=== PATIENT | male | born 1970 | race Caucasian/White ===

== ENCOUNTER 2021-09-03 08:01 | Inpatient (IN) | payer SELFPAY ==
[~2021-09-03] VITALS: Ht 185.4 cm; Wt 95.3 kg
[~2021-09-03 08:01] MED LIST: IBUPROFEN600 MG PO
[2021-09-03 09:02] LABS: BUN/CREATININE RATIO 17 (0-10)
[2021-09-03 09:32] LABS: HEMOGLOBIN 13.3 gm/dl (14.0-17.5); RED BLOOD COUNT 4.28 M/UL (4.20-5.50); WHITE BLOOD COUNT 13.8 K/UL (4.5-11.0)
[2021-09-04 04:52] LABS: HEMOGLOBIN 13.2 gm/dl (14.0-17.5); RED BLOOD COUNT 4.24 M/UL (4.20-5.50)
[2021-09-04 05:43] LABS: BUN/CREATININE RATIO 15 (0-10)
[2021-09-04 08:13] LABS: HIV SCREEN 4TH GENERATION WRFX Non Reactive (Non Reactive)
== END 2021-09-05 01:02 | disposition left against medical advice (07) | DRG 193 ==
LOC: ER1 08:01 → MED SURG 4 11:23 → CDU 11:23 → MED SURG 4 17:06
PROVIDERS: Emergency Medicine; Physician Assistant; ADMIT Internal Medicine
PROC: B24BZZ4 Ultrasonography of Heart with Aorta, Transesophageal (ICD-10-PCS; principal; 2021-09-03)
DX: J18.9 Pneumonia, unspecified organism (principal); I50.23 Acute on chronic systolic (congestive) heart failure; R65.10 Systemic inflammatory response syndrome (SIRS) of non-infectious origin without acute organ dysfunction; R04.2 Hemoptysis; Z20.822 Contact with and (suspected) exposure to COVID-19; E03.9 Hypothyroidism, unspecified; F12.10 Cannabis abuse, uncomplicated; F15.10 Other stimulant abuse, uncomplicated; I11.0 Hypertensive heart disease with heart failure; I25.10 Atherosclerotic heart disease of native coronary artery without angina pectoris; G43.909 Migraine, unspecified, not intractable, without status migrainosus; Z88.0 Allergy status to penicillin; Z82.49 Family history of ischemic heart disease and other diseases of the circulatory system; Z83.3 Family history of diabetes mellitus; Z91.14 Patient's other noncompliance with medication regimen
CPT/HCPCS: ECHO; 36415; 36600; 71045; 80048; 80053; 80202; 80307; 82550; 82553; 82803; 83540; 83550; 83605; 83615; 83735; 83880; 84100; 84439; 84443; 84484; 85025; 85379; 86140; 87040; 87389; 93005; 93306; 94640; 94664; 94760; 96374; 96375; 99285; J0456; J0692; J0696; J1100; J1940; J3370; J7030; J7070; Q0177; U0002

== ENCOUNTER 2021-10-11 03:52 | Observation (INO) | payer OTHER ==
[~2021-10-11] VITALS: Ht 185.4 cm; Wt 111.2 kg
[2021-10-11 04:21] LABS: HEMOGLOBIN 14.1 gm/dl (14.0-17.5); RED BLOOD COUNT 4.54 M/UL (4.20-5.50); WHITE BLOOD COUNT 11.4 K/UL (4.5-11.0)
[2021-10-11 05:01] LABS: BUN/CREATININE RATIO 13 (0-10)
[2021-10-12 05:31] LABS: HEMOGLOBIN 14.7 gm/dl (14.0-17.5); RED BLOOD COUNT 4.75 M/UL (4.20-5.50); WHITE BLOOD COUNT 11.8 K/UL (4.5-11.0)
[2021-10-12 05:59] LABS: BUN/CREATININE RATIO 19 (0-10)
[2021-10-13 06:35] LABS: HEMOGLOBIN 15.1 gm/dl (14.0-17.5); RED BLOOD COUNT 4.87 M/UL (4.20-5.50); WHITE BLOOD COUNT 10.8 K/UL (4.5-11.0)
[2021-10-13 06:57] LABS: BUN/CREATININE RATIO 18 (0-10)
[2021-10-14 08:37] LABS: BUN/CREATININE RATIO 19 (0-10)
[2021-10-14] MEDS ORDERED: ASPIRIN EC81 MG PO (13:12)
[2021-10-14] MEDS ORDERED: LISINOPRIL5 MG PO (13:12)
[2021-10-14] MEDS ORDERED: LEVOTHYROXINE50 MCG PO (13:12)
[2021-10-14] MEDS ORDERED: CARVEDILOL3.125 MG PO (13:12)
[2021-10-14] MEDS ORDERED: LEVOFLOXACIN500 MG PO (13:12)
[2021-10-15] MEDS ORDERED: LASIX40 MG PO (11:30)
== END 2021-10-15 13:30 | disposition home or self-care (01) ==
LOC: ER1 03:52 → MED SURG 4 06:28 → CDU 06:28 → MED SURG 4 15:27
PROVIDERS: Family Medicine; Internal Medicine; Internal Medicine Infectious Disease; Physician Assistant; ADMIT Internal Medicine
DX: I11.0 Hypertensive heart disease with heart failure (principal); I50.23 Acute on chronic systolic (congestive) heart failure; Z20.822 Contact with and (suspected) exposure to COVID-19; I34.0 Nonrheumatic mitral (valve) insufficiency; I16.0 Hypertensive urgency; J18.9 Pneumonia, unspecified organism; I43 Cardiomyopathy in diseases classified elsewhere; F15.10 Other stimulant abuse, uncomplicated; E03.9 Hypothyroidism, unspecified; I25.2 Old myocardial infarction; Z79.899 Other long term (current) drug therapy; Z88.0 Allergy status to penicillin; Z91.14 Patient's other noncompliance with medication regimen
CPT/HCPCS: ECHO; 0240U; 36415; 36600; 71045; 78452; 80048; 80053; 80061; 80307; 81001; 82550; 82553; 82803; 83036; 83735; 83874; 83880; 84439; 84443; 84484; 85025; 85379; 85610; 87040; 93005; 93017; 93306; 96374; 96376; 99152; 99153; 99285; A9502; C1769; C1887; C1894; G0378; J0461; J1644; J1650; J1940; J1956; J2250; J2370; J2785; J3010; J7040; Q9967